=== PATIENT | female | born 1985 | race Caucasian/White ===

== ENCOUNTER 2020-05-19 13:19 | Emergency (ER) | payer OTHER ==
[~2020-05-19] VITALS: Ht 160 cm; Wt 63.5 kg
[2020-05-19 13:36] VITALS: Ht 160 cm; Wt 63.5 kg
[2020-05-19 16:58] VITALS: BP 107/45
== END 2020-05-19 16:58 | disposition home or self-care (01) ==
LOC: ED 13:19
DX: R10.2 Pelvic and perineal pain (principal); N75.0 Cyst of Bartholin's gland; N76.4 Abscess of vulva
CPT/HCPCS: J2001; J3010